=== PATIENT | male | born 1985 | race Caucasian/White ===

== ENCOUNTER 2024-10-11 08:01 | Outpatient (CLI) | payer OTHER, SELFPAY ==
--- NOTE | ~2024-10-11 | XR_ITS ---
Cervical Spine: AP, lateral, open-mouth views Clinical History: Pain Findings: There is straightening of the normal cervical lordosis. No fracture or subluxation evident there is minimal degenerative change at C5-C6.. There is minimal facet arthropathy. Pre-vertebral sof t tissues are unremarkable. Impression: Minimal degenerative change, as above. Reviewed, dictated and finalized at location . Impression: Minimal degenerative change, as above.
--- NOTE | ~2024-10-11 | XR_ITS ---
Lumbosacral Spine: AP and lateral views Clinical History: Pain Findings: The normal lordotic curve is maintained. No fracture or subluxation seen. There is advanced degenerative disc narrowing at L4-L5. There is moderate to advanced facet arthropathy throughout the lumbar spine. The sacroiliac joints are normally outlined. Impression: Moderate degenerative spondylosis overall, as detailed above. Reviewed, dictated and finalized at location . Impression: Moderate degenerative spondylosis overall, as detailed above.
--- NOTE | ~2024-10-11 | XR_ITS ---
Thoracic spine: Clinical Indication: Back pain AP and lateral views were performed. No fracture is seen. There is normal alignment of the vertebrae. The intervertebral disc spaces appe ar normal. Paravertebral soft tissues appear normal. Impression: No significant abnormalities noted. Reviewed, dictated and finalized at [facility]. Impression: No significant abnormalities noted.
--- OUTSIDE RECORDS SUMMARY | 2024-10-11 08:11 | XMS_ITS | Clinical Summary ---
Author Organization [facility] Address [address] [place] [address] Care Team Providers Care Customer Greeter Name Role Phone Washington López MD Primary Care Provider + Allergies Active Allergy Reactions Criticality Noted Date Comments Mushroom Unknown 05/01/2024 Penicillins Hives,Urticaria Medium 05/15/2018 Medications albuterol HFA (PROVENTIL HFA,VENTOLIN HFA,PROAIR HFA) 90 mcg/actuation inhaler Inhale 2 puffs every 6 (six) hours as needed 04/21/20 Active budesonide-glycopy r-formoterol (Breztri Aerosphere) 160-9-4.8 mcg/actuation inhalerIndications :Moderate asthma with acute exacerbation, unspecified whether persistent Inhale 2 puffs 2 (two) times a day 2 each 05/01/20 Active Additional Information Patient taking differently: 1 puffinhalationDaily, Reported on 05/26/2024 ibuprofen (ADVIL,MOTRIN) 800 mg tabletIndications: Anti-inflammatory Take 1 tablet (800 mg total) by mouth every 8 (eight) hours as needed for pain 90 tablet 05/08/20 24 Active traMADoL (ULTRAM) 50 mg tabletIndications: Degeneration of intervertebral disc of lumbar region with discogenic back pain and lower extremity pain Take 1 tablet (50 mg total) by mouth every 6 (six) hours 60 tablet 05/26/20 24 Active Active Problems Problem Noted Date Diagnosed Date Syncope 05/12/2024 Assessment & Plan (05/12/2024 9:06 AM CASTER OPERATOR): Unknown etiology. Will order a echocardiogram and an event monitor. Acute bronchitis due to other specified organism s 05/01/2024 Assessment & Plan (05/12/2024 9:13 AM CASTER OPERATOR): Slowly improving after Levaquin. Continue Breztri and albuterol HFA. Assessment & Plan (05/08/2024 2:58 PM CASTER OPERATOR): Slightly improved with Breztri and prednisone taper, but still has dyspnea on exertion and coughing. Will try a Levaquin 750 mg once a day for 5 days Assessment & Plan (05/01/2024 9:27 AM CDT): Will do a prednisone taper. Continue albuterol HFA. Will give Breztri 2 puff twice day. Tobacco dependence due to cigarettes 07/14/2021 Assessment & Plan (05/07/2024 12:25 PM CASTER OPERATOR): Counseled on smoking cessation for over 3 minutes. Assessment & Plan (04/29/2024 7:31 AM CDT): Counseled on smoking cessation for over 3 minutes. Assessment & Plan (07/14/2021 8:54 AM CASTER OPERATOR): Counseled on smoking cessation for over 3 minutes. Encouraged smoking cessation as a goal so he can get his back surgery. Lumbar degenerative disc disease 06/16/2021 Overview (04/29/2024): He presented to ER 04/21/2024 with complaint of low back pain progressively worse over the last 2 days prior to presentation. During that time he also developed chest tightness and shortness of breath which was worse with lying down. His white count was mildly elevated at 12. CMP was unremarkable. He was negative for COVID and influenza A and B. He was also negative for strep. Chest x-ray showed slight bronchovascular prominence with central peribronchial thickening which can be seen in reactive airway disease. He was started on albuterol and Medrol Dosepak. For his back pain he was given baclofen, lidocaine patch, and hydrocodone. Assessment & Plan (05/26/2024 10:41 AM CASTER OPERATOR): Had 7 sessions of physical therapy and pain is no better. Physical therapy recommended to get an MRI as he was not progressing. Will try Tramadol 50 mg every 6 hours prn pain Assessment & Plan (05/12/2024 9:04 AM CASTER OPERATOR): Started PT. Still having a lot of back pain. Will continue off work. Assessment & Plan (05/07/2024 12:25 PM CASTER OPERATOR): Improved after treatment with ibuprofen Assessment & Plan (05/01/2024 9:13 AM CDT): Most likely low back strain. Would start ibuprofen 800 mg 3 times a day with food for 1 week Continue baclofen. Instructed on heat 20-30 minutes can repeat every 2-3 hours. Assessment & Plan (06/16/2021 9:34 AM CASTER OPERATOR): Pain controlled with baclofen and Lyrica Chronic cervical radiculopathy 06/16/2021 BMI 27.0-27.9,adult 06/16/2021 Intrinsic eczema 06/16/2021 Assessment & Plan (06/16/2021 10:00 AM CASTER OPERATOR): Will start triamcinolone cream Resolved Problems Problem Noted Date Diagnosed Date Resolved Date Low back strain 05/01/2024 05/01/2024 Exposure to sexually transmi tted disease (STD) 06/14/2022 06/18/2024 Assessment & Plan (06/14/2022 3:17 PM CASTER OPERATOR): Will test pt for gonorrhea and chlamydia and notify of results Will treat based on results Pt has history of urticaria with penicillin, will not treat with rocephin today Pt verbalized understanding and in agreement with plan For new or worsening symptoms, follow up with PCP or go to ER Moderate episode of recurren t major depressive disorder 06/16/2021 05/01/2024 Assessment & Plan (07/14/2021 8:53 AM CASTER OPERATOR): Improved slightly with addition of bupropion to sertraline. Bupropion was increased yesterday by Dr. Keys.. He has follow-up with Dr. Keys the psychiatrist in 6 weeks. Assessment & Plan (06/16/2021 9:46 AM CASTER OPERATOR): Still depressed despite being on sertraline. Sees psychiatrist regularly. Will try low dose buproprion XL 150 mg once a day. Encounters Date Type Department Care Team Description 09/03/2024 Nurse Triage [facility] Primary Care [address] [place] [id number] Washington López MD 08/30/2024 11:48 AM CASTER OPERATOR - 08/30/2024 1:22 PM [facility] Emergency [facility] Emergency Department [address] [place] [id number] COVID (Primary Dx) Discharge Disposition: Discharge to home or self care from Last 3 Months Immunizations Immunization Administration Dates Next Due Influenza, Unspecified 05/01/2024(Deferr ed: Patient Refused),05/01/2024(Deferred: Patient decision),04/03/2024(Deferred: Patient decision),04/01/2023(Deferred: Patient decision) Tdap 02/06/2015 Surgical History Surgery Date Site/Laterality Comments KNEE SURGERY 07/02/1999 - 07/01/2000 Right Medical History Medical History Date Comments Depression Kidney stone DDD (degenerative disc disease), lumbar Retrolisthesis of vertebrae Lumbar spondylosis Scoliosis of lumbar spine Protrusion of lumbar intervertebral disc Lumbar canal stenosis Lumbar facet arthropathy Family History Medical History Relation Name Comments Heart murmur Father Diabetes Mother Relation Name Status Comments Father Alive Mother Alive Sister Alive Social History Tobacco Use Types Packs/Day Years Used Date Smoking Tobacco: Every Day Cigarettes 0.3 20 Smokeless Tobacco: Never Tobacco Cessation:Ready to Q uit: Yes; Counseling Given: Yes Alcohol Use Standard Drinks/Week Comments Never 0 (1 standard drink = 0.6 oz pur e alcohol) AUDIT-C Answer Date Recorded Q1: How often do you have a drink containing alcohol? Never 05/26/2024 Q2: How many drinks containi ng alcohol do you have on a typical day when you are drinking? Patient does not drink Q3: How often do you have si x or more drinks on one occasion? Never 05/26/2024 PHQ-2 Answer Date Recorded PHQ-2 Total Score (If total score is 3 or more points, staff should administer the PHQ-9) 0 05/01/2024 Personal Safety Answer Date Recorded Have you ever been in or are you currently in a harmful physical or emotional relationship or is someone making you feel afraid or unsafe? Denies 08/30/2024 Sex and Gender Information Value Date Recorded Sex Assigned at Not on file Legal Sex Male 1:40 PM CASTER OPERATOR Gender Identity Not on file Sexual Orientation Not on file Occupation Industry Job Start Date Job End Date disabled Not on file Not on file Not on file Obstetrics History Last Filed Vital Signs Vital Sign Reading Time Taken Comments Blood Pressure 128/79 08/30/2024 12:50 PM CASTER OPERATOR Pulse 88 08/30/2024 1:05 PM CASTER OPERATOR Temperature 36.9 C (98.4 F) 08/30/2024 12:50 PM CASTER OPERATOR Respiratory Rate 19 08/30/2024 12:50 PM CASTER OPERATOR Oxygen Saturation 94% 08/30/2024 1:05 PM CASTER OPERATOR Inhaled Oxygen Concentration - - Weight 87.1 kg (192 lb 0.3 oz) 08/30/2024 10:47 AM CASTER OPERATOR Height 167.6 cm (5' 6 ) 08/30/2024 10:47 AM CASTER OPERATOR Body Mass Index 30.99 08/30/2024 10:47 AM CASTER OPERATOR Plan of Treatment Health Maintenance Due Date Last Done Comments Hepatitis C Screening 1984 Varicella Vaccines (1 of 2 - 13+ 2-dose series) 1997 Hepatitis B Screening 2002 Regular Well Visit/Exam 18-64 2002 Pneumococcal vaccine <65 (1 of 2 - PCV) 2003 Covid-19 Vaccine (3 - 2023- season) 2024 03/14/2021, 02/21/2021 Influenza Vaccine (#1) 2024 Postp oned from 03/02/2024 (Patient declined, but will receive in the future) DTaP/Tdap/Td Vaccine (2 - Td or Tdap) 02/06/2025 02/06/2015 Depression Screening 05/01/2025 05/01/2024, 07/14/2021, 07/14/2021, Additional history exists HPV Vaccines Aged Out No longer eligi ble based on patient's age to complete this topic Procedures Procedure Name Priority Date/Time Associated Diagnosis Comments INFLUENZA A/B, RSV, AND COVID-19 PCR STAT 08/30/2024 10:50 AM CASTER OPERATOR from Last 3 Months Results * (ABNORMAL) Influenza A/B, RSV, and COVID-19 PCR Nasopharyngeal (08/30/2024 10:50 AM CASTER OPERATOR) COVID-19 RNA Positive(A) Negative Comment:Testing performed by : [address] [address] Influenza A RNA Negative Negative [facility] Comment:Testing performed by : [address] [address] Influenza B RNA Negative Negative [facility] Comment:Testing performed by : [address] [address] RSV RNA Negative Negative [facility] Comment: Interpretive data: Testing performed by [facility]. This test is performed using the [employer] Xpert Xpress CoV-2/Flu/RSV plus assay. This is a multiplex, real-time reverse transcriptase PCR assay intended for the qualitative detection of nucleic acid from SARS-CoV-2, influenza A, influenza B, and respiratory syncytial virus. This assay has been cleared by the [place] Food and Drug administration. The performance characteristics have been verified by the [facility]. Results must be considered in the clinical context, and a negative result does not rule out infection. Interpretive Data last revised 2023 Testing performed by: [address] [address] Nasopharyngeal 08/30/2024 10 :50 AM CASTER OPERATOR 08/30/2024 10:55 AM CASTER OPERATOR Narrative [facility] - 08/30/2024 11:45 AM CASTER OPERATOR Is the Patient experiencing symptoms consistent with COVID?->Yes us Mer[facility] MICROBIOLOGY - GENERAL ORDER CHASITY Final Result [facility] [address] [facility] [place] [address] from Last 3 Months Insurance [facility] [place] [id number] Care Teams Customer Greeter Relationship Specialty Start Date End Date Washington López MD [address] [place] [address] PCP - General Internal Medicine 05/01/24
--- OUTSIDE RECORDS SUMMARY | 2024-10-11 08:11 | XMS_ITS | Clinical Summary ---
Author Organization [facility] Address [address] [facility] [place] [address] Care Team Providers Care Director Cpg Name Role Phone Gordo Ko MD Primary Care Provider + [phone] Grace Montoya APRN-MOTH EXTERMINATOR Unavailable [phone] Source Comments [facility],non-owned Affiliates and Associated Physician Practices is amultiple site organization consisting of ambulatory clinics and hospital sitesin [place], [place], [place] and [place]. This disclosure is being madepursuant to the Care Everywhere program and may not contain all information available regarding this patient. Last updated 18.[facility] Allergies Active Allergy Reactions Criticality Noted Date Comments Penicillins Urticaria Medium 10/07/2018 Medications * Be aware that medications may not be up to date on this document. Alwaysverify current medications with the patient. sertraline (ZOLOFT) 50 MG tablet 100 mg 3 09/28/2018 Active hydrOXYzine pamoate (VISTARIL) 50 MG capsule TAKE 1 CAPSULE BY MOUTH 4 TIMES DAILY NEEDED 05/10/2020 Active Active Problems No known active problems Social History Tobacco Use Types Packs/Day Years Used Date Smoking Tobacco: Every Day Cigarettes Smokeless Tobacco: Never Tobacco Cessation:Ready to Q uit: No; Counseling Given: Yes Alcohol Use Standard Drinks/Week Comments Not Currently 0 (1 standard drink = 0.6 oz pur e alcohol) Sex and Gender Information Value Date Recorded Sex Assigned at Not on file Legal Sex Male 9:33 AM CDT Gender Identity Not on file Sexual Orientation Not on file Last Filed Vital Signs Vital Sign Reading Time Taken Comments Blood Pressure 143/78 04/25/2021 8:29 AM CDT Pulse 85 04/25/2021 8:29 AM CDT Temperature 36.8 C (98.2 F) 04/25/2021 8:29 AM CDT Respiratory Rate - - Oxygen Saturation 98% 04/25/2021 8:29 AM CDT Inhaled Oxygen Concentration - - Weight 80 kg (176 lb 6.4 oz) 04/25/2021 8:29 AM CDT Height 176.5 cm (5' 9.5 ) 04/25/2021 8:29 AM CDT Body Mass Index 25.68 04/25/2021 8:29 AM CDT Plan of Treatment Health Maintenance Due Date Last Done Comments LIPID TESTING 1984 HIV SCREENING 1999 HEPATITIS C SCREENING 08/22/2002 DTAP/TDAP/TD VACCINES (1 - Tdap) 2003 HEPATITIS B VACCINE (1 of 3 - 19+ 3-dose series) 2003 PNEUMOCOCCAL VACCINE (1 of 2 - PCV) 2003 COVID-19 VACCINE (1 - 2023-2 5 season) 2024 DEPRESSION SCREENING 07/02/2024 INFLUENZA VACCINE (Season Ended) 2025 ZOSTER VACCINE (1 of 2) 2034 HIB VACCINE Aged Out No longer eligi ble based on patient's age to complete this topic HPV VACCINE Aged Out No longer eligi ble based on patient's age to complete this topic MENINGOCOCCAL (Group B) VACC INE SHARED DECISION-MAKING Aged Out No longer eligibl e based on patient's age to complete this topic MENINGOCOCCAL GROUPS A/C/Y/W VACCINE Aged Out No longer eligible b ased on patient's age to complete this topic Insurance [facility] Care Teams Director Cpg Relationship Specialty Start Date End Date Gordo Ko MD [address] [place] [address] PCP - General 09/19/18 Grace Montoya APRN-MOTH EXTERMINATOR [address] [place] [address] PCP - Attributed-[place] 06/01/24
--- OUTSIDE RECORDS SUMMARY | 2024-10-11 08:11 | XMS_ITS | Encounter Summary ---
Author Organization [facility] Address [address] [place] [address] Care Team Providers Care Commercial Counsel Name Role Phone None, Provider Primary Care Provider Unavaila ble Gordo Ko MD Primary Care Provider Encounter Details Date Type Department Care Team (Late st Contact Info) Description 12/07/2018 Abstract [facility]FL CONVERSION [address] [place] [address] , Generic Conversion, Social History Tobacco Use Types Packs/Day Years Used Date Smoking Tobacco: Every Day Smokeless Tobacco: Current Sex and Gender Information Value Date Recorded Sex Assigned at Not on file Legal Sex Male 7:21 PM CDT Gender Identity Not on file Sexual Orientation Not on file documented as of this encounter Plan of Treatment Not on file documented as of this encounter Visit Diagnoses Not on filedocumented in this encounter Additional Health Concerns Infection Onset Date Last Indicated Resolved Time COVID-19 Rule Out 04/21/2024 04/21/2024 04/21/2024 2:17 PM CDT documented as of this encounter Care Teams Commercial Counsel Relationship Specialty Start Date End Date None, Provider, PCP - General 05/15/18 03/09/20 Gordo Ko MD [address] [place] [address] PCP - General FAMILY PRACTICE 03/10/20 documented as of this encounter
--- OUTSIDE RECORDS SUMMARY | 2024-10-11 08:11 | XMS_ITS | Referral Summary ---
Author Organization [facility] Address [address] [place] [address] Care Team Providers Care Freight Car Repairer Name Role Phone Washington López MD Primary Care Provider + Encounters Date Type Department Care Team Description 09/03/2024 Nurse Triage [facility] Primary Care [address] [place] [phone] Washington López MD 08/30/2024 11:48 AM LOAN ORIGINATOR - 08/30/2024 1:22 PM [facility] Emergency [facility] Emergency Department [address] [place] [id number] COVID (Primary Dx) Discharge Disposition: Discharge to home or self care from Last 3 Months Allergies Active Allergy Reactions Criticality Noted Date Comments Mushroom Unknown 05/01/2024 Penicillins Hives,Urticaria Medium 05/15/2018 Medications albuterol HFA (PROVENTIL HFA,VENTOLIN HFA,PROAIR HFA) 90 mcg/actuation inhaler Inhale 2 puffs every 6 (six) hours as needed 04/21/20 24 Active budesonide-glycopy r-formoterol (Breztri Aerosphere) 160-9-4.8 mcg/actuation inhalerIndications :Moderate asthma with acute exacerbation, unspecified whether persistent Inhale 2 puffs 2 (two) times a day 2 each 05/01/20 24 Active Additional Information Patient taking differently: 1 [...] 05/12/2024 Assessment & Plan (05/12/2024 9:06 AM LOAN ORIGINATOR): Unknown etiology. Will order a echocardiogram and an event monitor. Acute bronchitis due to other specified organism s 05/01/2024 Assessment & Plan (05/12/2024 9:13 AM LOAN ORIGINATOR): Slowly improving after Levaquin. Continue Breztri and albuterol HFA. Assessment & Plan (05/08/2024 2:58 PM LOAN ORIGINATOR): Slightly improved with Breztri and prednisone taper, but still has dyspnea on exertion and coughing. Will try a Levaquin 750 mg once a day for 5 days Assessment & Plan (05/01/2024 9:27 AM CDT): Will do a prednisone taper. Continue albuterol HFA. Will give Breztri 2 puff twice day. Tobacco dependence due to cigarettes 07/14/2021 Assessment & Plan (05/07/2024 12:25 PM LOAN ORIGINATOR): Counseled on smoking cessation for over 3 minutes. Assessment & Plan (04/29/2024 7:31 AM CDT): Counseled on smoking cessation for over 3 minutes. Assessment & Plan (07/14/2021 8:54 AM LOAN ORIGINATOR): Counseled on smoking cessation for over 3 [...] hydrocodone. Assessment & Plan (05/26/2024 10:41 AM LOAN ORIGINATOR): Had 7 sessions of physical therapy and pain is no better. Physical therapy recommended to get an MRI as he was not progressing. Will try Tramadol 50 mg every 6 hours prn pain Assessment & Plan (05/12/2024 9:04 AM LOAN ORIGINATOR): Started PT. Still having a lot of back pain. Will continue off work. Assessment & Plan (05/07/2024 12:25 PM LOAN ORIGINATOR): Improved after treatment with ibuprofen Assessment & Plan (05/01/2024 9:13 AM CDT): Most likely low back strain. Would start ibuprofen 800 mg 3 times a day with food for 1 week Continue baclofen. Instructed on heat 20-30 minutes can repeat every 2-3 hours. Assessment & Plan (06/16/2021 9:34 AM LOAN ORIGINATOR): Pain controlled with baclofen and Lyrica Chronic cervical radiculopathy 06/16/2021 BMI 27.0-27.9,adult 06/16/2021 Intrinsic eczema 06/16/2021 Assessment & Plan (06/16/2021 10:00 AM LOAN ORIGINATOR): Will start triamcinolone cream Resolved Problems Problem Noted Date Diagnosed Date Resolved Date Low back strain 05/01/2024 05/01/2024 Exposure to sexually transmi tted disease (STD) 06/14/2022 06/18/2024 Assessment & Plan (06/14/2022 3:17 PM LOAN ORIGINATOR): Will test pt for gonorrhea and chlamydia [...] 05/01/2024 Assessment & Plan (07/14/2021 8:53 AM LOAN ORIGINATOR): Improved slightly with addition of bupropion to sertraline. Bupropion was increased yesterday by Dr. Keys.. He has follow-up with Dr. Keys the psychiatrist in 6 weeks. Assessment & Plan (06/16/2021 9:46 AM LOAN ORIGINATOR): Still depressed despite being on sertraline. Sees psychiatrist regularly. Will try low dose buproprion XL 150 mg once a day. Immunizations Immunization Administration Dates Next Due Influenza, Unspecified 05/01/2024(Deferr ed: Patient Refused),05/01/2024(Deferred: Patient decision),04/03/2024(Deferred: Patient decision),04/01/2023(Deferred: Patient decision) Tdap 02/06/2015 Social History Tobacco Use Types Packs/Day Years [...] on file Legal Sex Male 1:40 PM LOAN ORIGINATOR Gender Identity Not on file Sexual Orientation Not on file Occupation Industry Job Start Date Job End Date disabled Not on file Not on file Not on file Last Filed Vital Signs Vital Sign Reading Time Taken Comments Blood Pressure 128/79 08/30/2024 12:50 PM LOAN ORIGINATOR Pulse 88 08/30/2024 1:05 PM LOAN ORIGINATOR Temperature 36.9 C (98.4 F) 08/30/2024 12:50 PM LOAN ORIGINATOR Respiratory Rate 19 08/30/2024 12:50 PM LOAN ORIGINATOR Oxygen Saturation 94% 08/30/2024 1:05 PM LOAN ORIGINATOR Inhaled Oxygen Concentration - - Weight 87.1 kg (192 lb 0.3 oz) 08/30/2024 10:47 AM LOAN ORIGINATOR Height 167.6 cm (5' 6 ) 08/30/2024 10:47 AM LOAN ORIGINATOR Body Mass Index 30.99 08/30/2024 10:47 AM LOAN ORIGINATOR Plan of Treatment Not on file Procedures Procedure Name Priority Date/Time Associated Diagnosis Comments INFLUENZA A/B, RSV, AND COVID-19 PCR STAT 08/30/2024 10:50 AM LOAN ORIGINATOR from Last 3 Months Results * (ABNORMAL) Influenza A/B, RSV, and COVID-19 PCR Nasopharyngeal (08/30/2024 10:50 AM LOAN ORIGINATOR) COVID-19 RNA Positive(A) Negative Comment:Testing performed by : [address] [address] Influenza A RNA Negative Negative [facility] Comment:Testing performed by : [address] [address] Influenza B RNA Negative Negative [facility] Comment:Testing performed by : [address] [address] RSV RNA Negative Negative [facility] Comment: Interpretive data: Testing performed by [facility]. This test is performed using the [employer]ep[employer] Xpert Xpress CoV-2/Flu/RSV plus assay. This is a multiplex, real-time reverse transcriptase PCR assay intended for the qualitative detection of nucleic acid from SARS-CoV-2, influenza A, influenza B, and respiratory syncytial virus. This assay has been cleared by the [place] Food and Drug administration. The performance characteristics have been verified by the [facility]. Results must be considered in the clinical context, and a negative result does not rule out infection. Interpretive Data last revised 2023 Testing performed by: [facility], [address] [place] [address]., [id number] Nasopharyngeal 08/30/2024 10 :50 AM LOAN ORIGINATOR 08/30/2024 10:55 AM LOAN ORIGINATOR Narrative MART[facility]N - 08/30/2024 11:45 AM LOAN ORIGINATOR Is the Patient experiencing symptoms consistent with COVID?->Yes us Merari [facility] MICROBIOLOGY - GENERAL ORDER CHASITY Final Result [facility] [address] [facility] [place] [address] from Last 3 Months Insurance [facility] [employer] Care Teams Freight Car Repairer Relationship Specialty Start Date End Date Washington López MD [address] [place] [address] PCP - General Internal Medicine 05/01/24
--- OUTSIDE RECORDS SUMMARY | 2024-10-11 08:11 | XMS_ITS | Clinical Summary ---
Author Organization [facility] Address [address] [place] [address] Care Team Providers Care Manometer Technician Name Role Phone Gordo Ko MD Primary Care Provider [phone] Allergies Active Allergy Reactions Criticality Noted Date Comments Amoxicillin Hives 05/15/2018 Penicillins Hives 05/15/2018 Medications ondansetron 4 MG disintegrating tablet Take 1 tablet (4 mg total) by mouth every 8 (eight) hours as needed for Nausea. 20 tablet 8 Active methocarbamol (ROBAXIN-750) 750 MG Tab Take 1 tablet (750 mg total) by mouth every 4 (four) hours. 180 tablet 0 Active HYDROcodone-acetami nophen (NORCO) 5-325 MG tabletIndications:A cute Pain < 3 Day Supply Take 1 tablet by mouth every 6 (six) hours as needed. Indications: Acute Pain < 3 Day Supply 10 tablet 4 Active methylPREDNISolone, CARTER, (MEDROL DOSEPAK) 4 MG tablet 6 TABLETS ON DAY ONE, 5 TABLETS DAY TWO, 4 TABLETS DAY THREE, 3 TABLETS DAY FOUR, 2 TABLETS DAY FIVE, AND 1 TABLET DAY SIX 1 each 4 Active albuterol sulfate HFA 108 (90 Base) MCG/ACT inhaler Inhale 2 puffs into the lungs every 6 (six) hours as needed. 8 g 4 Active lidocaine (LIDO MATTHEW) 4 % patch Place 1 patch onto the skin daily. Remove & Discard patch within 12 hours or as directed by MD 30 patch 4 Active Social History Tobacco Use Types Packs/Day Years Used Date Smoking Tobacco: Every Day Smokeless Tobacco: Current Alcohol Use Standard Drinks/Week Comments Never 0 (1 standard drink = 0.6 oz pur e alcohol) AUDIT-C Answer Date Recorded Q1: How often do you have a drink containing alc ohol? Never 03/10/2020 Average Number of Drinks Not on file 020 Frequency of Binge Drinking Not on file 03/2020 Sex and Gender Information Value Date Recorded Sex Assigned at Not on file Legal Sex Male 7:21 PM CDT Gender Identity Not on file Sexual Orientation Not on file Last Filed Vital Signs Vital Sign Reading Time Taken Comments Blood Pressure 116/78 04/21/2024 3:16 PM CDT Pulse 102 04/21/2024 3:16 PM CDT Temperature 37.3 C (99.1 F) 04/21/2024 3:16 PM CDT Respiratory Rate 19 04/21/2024 3:16 PM CDT Oxygen Saturation 98% 04/21/2024 3:16 PM CDT Inhaled Oxygen Concentration - - Weight 83.3 kg (183 lb 10.3 oz) 024 11:47 AM CDT Height 175.3 cm (5' 9 ) 04/21/2024 11:4 7 AM CDT Body Mass Index 27.12 04/21/2024 11:47 AM CDT Plan of Treatment Health Maintenance Due Date Last Done Comments Annual Physical 1987 Pneumococcal Vaccine: Pediat rics (0 to 5 Years) and At-Risk Patients (6 to 64 Years) (1 of 2 - PCV) 1990 Hepatitis C 2002 Hepatitis B Vaccines (1 of 3 - 19+ 3-dose series) 2003 COVID-19 Vaccine (2023-2 5 season) 2024 DTaP, Tdap and Td Vaccines ( 2 - Td or Tdap) 02/06/2025 02/06/2015 HPV Vaccines Aged Out No longer eligi ble based on patient's age to complete this topic Meningococcal B Vaccine Aged Out No l onger eligible based on patient's age to complete this topic Meningococcal Vaccine Aged Out No lorraine emeterio eligible based on patient's age to complete this topic RSV Immunizations Under 20 Months Aged Out No longer eligible based on patient's age to complete this topic Insurance MEDICAID Care Teams Manometer Technician Relationship Specialty Start Date End Date Gordo Ko MD [id number] [place] [address] PCP - General FAMILY PRACTICE 03/10/20
--- OUTSIDE RECORDS SUMMARY | 2024-10-11 08:11 | XMS_ITS | Clinical Summary ---
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 Gender Identity Not on file Sexual Orientation Not on file Plan of Treatment Health Maintenance Due Date Last Done Comments Hepatitis C Virus (HCV) Screening 1984 Hepatitis B Immunization (1 of 3 - 19+ 3-dose series) 2003 Influenza Immunization (#1) 2024 SARS-COV-2 Immunization ( - 2023- season) 2024 03/14/2021, 02/21/2021 Respiratory Syncytial Virus (RSV) Immunization (Adult) (1 - 1-dose 75+ series) 2059 DTaP/Tdap/Td Immunization Discontinued 02/06/2015 TdaP Immunization Completed 02/06/2015 Meningococcal Immunization (ACWY) Aged Out No longer eligible based on patient's age to complete this topic Pneumococcal Immunization Combined Aged Out No longer eligible based on patient's age to complete this topic Rotavirus Immunization Aged Out No lo nger eligible based on patient's age to complete this topic
[2024-10-11 09:23] LABS: Hematocrit 44.3 % (42.0-52.0); Hemoglobin 14.5 g/dL (14.0-18.0); Mean Corpuscular HGB Conc 32.7 g/dl (32-36); Mean Corpuscular Hemoglobin 28.3 pg (26-34); Mean Corpuscular Volume 86.5 fl (80-100); Mean Platelet Volume 10.5 fl (7.4-10.4); Platelet Count Result 199 k/mm3 (150-375); Red Blood Count 5.12 M/mm3 (4.6-6.20); Red Cell Distribution Width 12.6 % (11.5-14.5); White Blood Count 8.1 K/mm3 (4.5-10.0)
[2024-10-11 09:34] LABS: Alanine Aminotransferase 24 U/L (6-50); Albumin Level 4.4 g/dL (3.5-5.1); Alkaline Phosphatase 96 U/L (38-126); Anion Gap 7 mmol/L (4-12); Aspartate Amino Transferase 26 U/L (17-59); Bilirubin,Total 0.3 mg/dL (0.2-1.3); Blood Urea Nitrogen 22 mg/dL (9-20); Calcium 9.2 mg/dL (8.4-10.2); Carbon Dioxide 22 mmol/L (22-30); Chloride 108 mmol/L (98-107); Cholesterol 164 mg/dL (0-200); Estimated Glomerular Filt Rate > 60; Glucose 100 mg/dL (65-110); HDL Direct 34 mg/dL; Potassium 4.4 mmol/L (3.4-5.0); Sodium 137 mmol/L (137-145); Triglycerides 94 mg/dL (<150)
[2024-10-11 09:45] LABS: LDL Cholesterol Direct 116 mg/dL
[2024-10-11 10:03] LABS: Add Urine Microscopic? NO; Appearance Urine Clear (Clear); Bilirubin Urine Negative (Negative); Blood Urine Negative (Negative); Color Urine Yellow (Yellow); Glucose Urine UA Negative (Negative); Ketones Urine Negative (Negative); Leukocyte Esterase Ur Negative LEU/UL (Negative); Nitrate Urine Negative (Negative); Protein Urine Negative (Negative); Specific Grav Ur 1.021 (1.001-1.035); pH Urine 5.5 (5.0-9.0)
[2024-10-11 10:05] LABS: Prostate Specific Antigen 0.6 ng/mL (< OR = 4.0)
[2024-10-11 10:36] LABS: Creatinine Urine 123.6 mg/dL
[2024-10-11 10:38] LABS: MALB Creatinine Ratio 6.6 mg/g (0-30); Microalbumin Urine Random 8.1 mg/L (0-16.7)
[2024-10-11 10:48] LABS: Free T4 Free Thyroxine 0.91 ng/dL (0.78-2.19); Vitamin D 25 Hydroxy 53.8 ng/mL
[2024-10-11 11:27] LABS: Hemoglobin A1C 5.4 % (<5.7)
== END 2024-10-11 08:02 | disposition home or self-care (01) ==
LOC: ANHIMG 08:09
PROVIDERS: PCP Family Medicine; Visit Provider Emergency Medicine
DX: M54.2 Cervicalgia (principal); M47.816 Spondylosis without myelopathy or radiculopathy, lumbar region; M54.9 Dorsalgia, unspecified; Z00.00 Encounter for general adult medical examination without abnormal findings
CPT/HCPCS: 36415; 72040; 72070; 72100; 80053; 80061; 81003; 82043; 82306; 83036; 84153; 84439; 84443; 85027